=== PATIENT | female | born 1990 | race Caucasian/White ===

== ENCOUNTER 2023-02-04 01:39 | Day surgery (SDC) | payer OTHER, SELFPAY ==
[2023-02-04] VITALS (21 sets, daily range): BP systolic 105–149; BP diastolic 62–102; PULSE 57–95; RESP 16–90; TEMP 36–37.2; O2SAT 93–100; BMI 29.3
--- NOTE | 2023-02-04 01:56 | CRLHL7_ITS ---
For Patients: As a result of the Century Cures Act, medical imaging exams and procedure reports are released immediately into your electronic medical record. You may view this report before your referring provider. If you have questions, please contact your health care provider. INDICATION: Right upper quadrant abdominal pain. TECHNIQUE: Ultrasound abdomen limited. Sonographic images of the right upper quadrant were obtained using umana-scale and color Doppler images. COMPARISON: None. FINDINGS: Liver: Normal in size and echotexture. No suspicious masses. Mild intrahepatic biliary ductal dilatation. Gallbladder: Distended gallbladder. 6 mm stone in the cystic duct, with additional stones and layering sludge in the gallbladder lumen. Mild gallbladder wall thickening measuring 3 mm. Positive sonographic Turner`s sign. Common bile duct: 5 mm. Pancreas: Visualized portions are unremarkable. Right kidney: Normal in size. Normal echotexture and cortex. No suspicious masses, stones, or hydronephrosis. Vasculature: Proximal abdominal aorta and IVC are unremarkable. IMPRESSION: Hydropic gallbladder with cholelithiasis and mild gallbladder wall thickening, suggestive of acute cholecystitis. Dictated by Harpreet Chaudhary MD @ 02/04/2023 3:04:52 AM (Electronically Signed)
[2023-02-04 01:59] LABS: Lactate* 2.1 mmol/L (0.5-1.9)
--- NOTE | 2023-02-04 01:59 | ED.GENADULT ---
HPI - General Adult General Chief complaint: Abdominal Pain Stated complaint: Severe abdominal pain Time Seen by Provider: 02/04/23 01:59 Source: patient Mode of arrival: ambulatory Limitations: no limitations History of Present Illness HPI narrative: 32-year-old generally healthy female presenting today with abdominal pain going on for the last 7 hours. Pain is located in the epigastric and right upper quadrant radiates into her chest. She has vomited a few times today as well. She denies any fevers or chills. She states that this has happened to her on multiple occasions, it only lasts for few hours and she feels better after a lot of burping. This time has not gotten any better infectious just been getting worse over the last several hours. Last bowel movement was today and was normal. She denies any urinary symptoms. She has not taken any medications for this. She takes no regular medications and denies any intra-abdominal surgeries in the past. Related Data Home Medications Medication Instructions Recorded Confirmed No Known Home Medications 02/04/23 02/04/23 Allergies Allergy/AdvReac Type Severity Reaction Status Date / Time No Known Drug Allergies Allergy Verified 02/04/23 01:44 Review of Systems Status of ROS: Reports: 10 or more systems reviewed and unremarkable except as noted in History and below [facility] Social History What is your current living situation?: I presently have a place to live Problems where you live: no known problems Problems where you live details: NA In the past 12 months, utilities in danger of being shut off: no In the past 12 mos, have been you worried that your food would run out before you had money to buy more?: never true In the past 12 mos, the food you bought just didn't last and you didn't have money to buy more?: never true Highest level of school completed/degree received: some college, no degree Smoking Status: Never smoker Do you use any of these nicotine containing products: None Second hand tobacco smoke exposure: No How often do you have a drink containing alcohol: monthly or less Alcohol type: wine How many standard drinks containing alcohol do you have on a typical day: 1 or 2 How often do you have six or more drinks on one occasion: Never AUDIT-C Alcohol total score: 1 Non-prescribed substance use: denies use Caffeine: Yes (1 cup/day) How often does anyone, including family, friends and others, physically hurt you: never How often does anyone, including family, friends and others, insult or talk down to you: never How often does anyone, including family, friends and others, threaten you with harm: never How often does anyone, including family, friends and others, scream or curse at you: never service: No Exam Narrative: Exam Narrative: Well-nourished well-developed patient, very anxious. Alert and oriented. Answers questions appropriately. Thoughts are goal oriented and rational. No tangential or magical thinking noted. Patient speaks in full sentences without needing to catch her breath. HEENT: Normocephalic atraumatic. Pupils are equally round reactive to light. Extraocular muscles are intact. Conjunctivae are moist without any icterus noted. Moist mucous membranes. Posterior pharynx is normal. Neck is soft without any lymphadenopathy or thyromegaly. No masses are appreciated. Cardiovascular: Heart is regular rate and rhythm S1 and S2 are present without any murmurs. Lungs: Clear to auscultation bilaterally no wheezes rhonchi or rales are appreciated. Patient takes deep breaths without any discomfort. Abdomen: Soft and nondistended with normal bowel sounds. No guarding or rebound. No masses or organomegaly appreciated. She does have epigastric discomfort and a positive Turner sign. Extremities: Bilateral lower extremities are without edema. Normal DP and PT pulses. Skin: Well perfused without any obvious rashes. Const: Vital Signs, click to edit/add: Vital Signs - 24 hr 02/04/23 01:45 02/04/23 03:00 02/04/23 03:05 Temperature 96.8 F L Pulse Rate [Pulse Oximeter] 73 Respiratory Rate 24 Blood Pressure [Ri ght Upper Arm] 147/102 H 146/92 H Pulse Oximetry 100 94 94 Oxygen Delivery Me thod Room Air Room Air 02/04/23 03:30 02/04/23 04:00 Temperature Pulse Rate [Pulse Oximeter] 95 Respiratory Rate 16 90 H Blood Pressure [Ri ght Upper Arm] 139/93 H 144/96 H Pulse Oximetry 94 98 Oxygen Delivery Me thod Room Air Course Course Hospital Course: IV is established and patient given IV fluids, Zofran and morphine. Differential diagnosis at this time includes gastritis, cholelithiasis, cholecystitis, PUD, pancreatitis. Aside from a minimally elevated lactate at 2.1 the remainder of her lab work was unremarkable. Ultrasound shows cholelithiasis and gallbladder wall changes consistent with cholecystitis. I did consult with Dr. Trent, who suggested admission and surgery in the morning. She also recommended Zosyn, which was started in the ER. Vital Signs Vital signs: Initial Vital Signs Temperature 96.8 F L 02/04/23 01:45 Temperature Source Temporal Artery Scan 02/04/23 01:45 Pulse Rate 73 02/04/23 01:45 Pulse Rhythm Regular 02/04/23 01:45 Pulse Strength 3+ Normal 02/04/23 01:45 Respiratory Rate 24 02/04/23 01:45 Blood Pressure 147/102 H 02/04/23 01:45 Blood Pressure Mean 117 H 02/04/23 01:45 Pulse Oximetry 100 02/04/23 01:45 Oxygen Delivery Method Room Air 02/04/23 01:45 Vital Signs Temperature 96.8 F L 02/04/23 01:45 Pulse Rate 73 02/04/23 01:45 Respiratory Rate 24 02/04/23 01:45 Blood Pressure 147/102 H 02/04/23 01:45 Pulse Oximetry 100 02/04/23 01:45 Oxygen Delivery Method Room Air 02/04/23 01:45 Temperature 99 F 02/04/23 05:25 Pulse Rate 62 02/04/23 05:25 Respiratory Rate 16 02/04/23 05:25 Blood Pressure 149/89 H 02/04/23 05:25 Pulse Oximetry 99 02/04/23 05:25 Oxygen Delivery Method Room Air 02/04/23 05:25 Medical Decision Making [facility] Narrative Medical decision making narrative: 32-year-old female cholecystitis and cholelithiasis. Patient will be admitted for pain management and plan to go to the OR later today. Lab Data Lab results reviewed: Yes I reviewed the patient's lab results Labs: Lab Results 02/04/23 Range/Units 01:56 WBC 10.48 (4.50-11.00) K/uL RBC 4.60 (4.00-5.20) m/uL Hgb 14.5 (12.0-16.0) gm/dL Hct 42.0 (33.0-51.0) % MCV 91 (80-100) fL MCH 32 (26-34) pg MCHC 35 (32-36) gm/dL RDW Coeff of Ml 11.9 (11.5-15.5) % Plt Count 229 (140-440) K/uL Neut % (Auto) 86.0 H (42.0-72.0) % Lymph % (Auto) 9.1 L (20-44) % Coffee % (Auto) 3.5 (0.0-11.0) % Eos % (Auto) 0.0 (0.0-7.0) % Baso % (Auto) 0.3 (0.0-3.0) % Neut # (Auto) 9.00 H (1.7-7.0) K/uL Lymph # (Auto) 1.00 (0.90-2.90) K/uL Coffee # (Auto) 0.40 (0.00-0.90) K/UL Eos # (Auto) 0.00 (0.00-0.50) K/uL Baso # (Auto) 0.03 (0.00-0.30) K/uL Abs Immat Gran (auto) 0.12 (0.00-0.30) K/uL Imm/Tot Granulo (auto) 1.1 % ESR 10 (2-20) mm/hr Sodium 138 (135-149) mmol/L Potassium 3.7 (3.6-5.1) mmol/L Chloride 104 (96-114) mmol/L Carbon Dioxide 20 (20-32) mmol/L BUN 14 (5-24) mg/dL Creatinine 0.7 (0.5-1.5) mg/dL Estimated Creat Clear 88.68 Estimated GFR 119 ml/min Glucose 121 H (60-115) mg/dL Lactate 2.1 H (0.5-1.9) mmol/L Calcium 10.2 (8.4-10.6) mg/dL Total Bilirubin 1.3 (0.1-1.5) mg/dL Direct Bilirubin 0.1 (0.0-0.5) mg/dL AST 32 (12-35) U/L ALT 31 (4-35) U/L Alkaline Phosphatase 65 (40-150) U/L C-Reactive Protein < 0.5 L (0.5-1.0) mg/dL Total Protein 8.3 (6.0-8.3) g/dL Albumin 4.9 (3.3-5.0) g/dL Lipase 65 (23-300) U/L Imaging Data US - abdomen: Attestation: I have reviewed the pertinent imaging results. Radiologist's impression: Ultrasound abdomen limited. Sonographic images of the right upper quadrant were obtained using umana-scale and color Doppler images. COMPARISON: None. FINDINGS: Liver: Normal in size and echotexture. No suspicious masses. Mild intrahepatic biliary ductal dilatation. Gallbladder: Distended gallbladder. 6 mm stone in the cystic duct, with additional stones and layering sludge in the gallbladder lumen. Mild gallbladder wall thickening measuring 3 mm. Positive sonographic Turner`s sign. Common bile duct: 5 mm. Pancreas: Visualized portions are unremarkable. Right kidney: Normal in size. Normal echotexture and cortex. No suspicious masses, stones, or hydronephrosis. Vasculature: Proximal abdominal aorta and IVC are unremarkable. IMPRESSION: Hydropic gallbladder with cholelithiasis and mild gallbladder wall thickening, suggestive of acute cholecystitis. Discharge Plan Discharge Clinical Impression: Cholecystitis, Cholelithiasis Patient Disposition: Admitted As Inpatient Condition: Stable
[2023-02-04 02:02] LABS: Basophils Absolute Auto 0.03 K/uL (0.00-0.30); Basophils Percent Auto 0.3 % (0.0-3.0); Hemoglobin* 14.5 gm/dL (12.0-16.0); Immature Granulocytes Abs Auto 0.12 K/uL (0.00-0.30); Immature Granulocytes Pct Auto 1.1 %; Lymphocytes Percent Auto 9.1 % (20-44); Mean Corpuscular HGB Conc 35 gm/dL (32-36); Mean Corpuscular Hemoglobin 32 pg (26-34); Mean Corpuscular Volume 91 fL (80-100); Monocytes Percent Auto 3.5 % (0.0-11.0); Platelet Count* 229 K/uL (140-440); RDW Coefficient of Variation % 11.9 % (11.5-15.5); White Blood Count* 10.48 K/uL (4.50-11.00)
[2023-02-04 02:03] LABS: Slide Review Reflex No
[2023-02-04] MEDS: 0.9 % SODIUM CHLORIDE 1000 ml 1,000 ML IV (02:06)
[2023-02-04] MEDS: MORPHINE 2 MG/ML inj 4 MG IVP (02:07)
[2023-02-04] MEDS: ONDANSETRON 2 MG/ML inj 4 MG IVP (02:07)
[2023-02-04 02:16] LABS: Albumin* 4.9 g/dL (3.3-5.0); Chloride* 104 mmol/L (96-114); Sodium* 138 mmol/L (135-149)
[2023-02-04 02:17] LABS: Potassium* 3.7 mmol/L (3.6-5.1)
[2023-02-04 02:18] LABS: Creatinine* 0.7 mg/dL (0.5-1.5); Est. Creatinine Clearance* 88.68; Estimated Glomerular Filt Rate 119 ml/min
[2023-02-04 02:19] LABS: Alkaline Phosphatase* 65 U/L (40-150); Aspartate Amino Transferase* 32 U/L (12-35); Bilirubin Direct* 0.1 mg/dL (0.0-0.5); Bilirubin Total* 1.3 mg/dL (0.1-1.5); Blood Urea Nitrogen* 14 mg/dL (5-24); Carbon Dioxide* 20 mmol/L (20-32); Total Protein* 8.3 g/dL (6.0-8.3)
[2023-02-04 02:20] LABS: Alanine Aminotransferase* 31 U/L (4-35); Calcium* 10.2 mg/dL (8.4-10.6); Glucose* 121 mg/dL (60-115); Lipase* 65 U/L (23-300)
[2023-02-04 02:23] LABS: C Reactive Protein* < 0.5 mg/dL (0.5-1.0)
[2023-02-04] MEDS: HYDROCODONE-ACETAMIN 5-325 MG 1 TAB 2 TAB PO (02:25)
[2023-02-04 02:43] LABS: Erythrocyte SedimentationRate* 10 mm/hr (2-20)
[2023-02-04] MEDS: HYDROmorphone 0.5 mg/0.5 ml inj 0.2 MG IVP (04:10)
[2023-02-04] MEDS: PIPERACILLIN/TAZOBACTAM 3.375 GM in 0.9 % SODIUM CHLORIDE Mini-bag 100 ML IVPB ×2 (04:10→09:44)
--- NOTE | 2023-02-04 04:26 | ED.NURSE ---
Nurse to Nurse report given to Teirra ELDRIDGE. Patient going to room 261
--- NOTE | 2023-02-04 04:40 | PM.IMCN1 ---
Date of Consult Consult date: 02/04/23 Primary Care Provider: Not a Local Provider Consult Narrative Narrative: Hardy Hernandez Hospitalist ADMISSION SUPPORT NOTE eHospitalist was contacted by Dr. Peng with request of admission support. Chief complaint: RUQ pain HPI: The patient reports that over the past 4 to 5 weeks she has had these episodes of abdominal discomfort that felt like a gas bubble occurring at nighttime associated with burping. These but wake her up out of her sleep Home Medications: None Pertinent Medical History: Egg retrieval Pertinent Social History: Denies history of smoking or drugs of abuse, occasional alcohol use [facility] Social History What is your current living situation?: I presently have a place to live Problems where you live: no known problems Problems where you live details: NA In the past 12 months, utilities in danger of being shut off: no In the past 12 mos, have been you worried that your food would run out before you had money to buy more?: never true In the past 12 mos, the food you bought just didn't last and you didn't have money to buy more?: never true Highest level of school completed/degree received: some college, no degree Smoking Status: Never smoker Do you use any of these nicotine containing products: None Second hand tobacco smoke exposure: No How often do you have a drink containing alcohol: monthly or less Alcohol type: wine How many standard drinks containing alcohol do you have on a typical day: 1 or 2 How often do you have six or more drinks on one occasion: Never AUDIT-C Alcohol total score: 1 Non-prescribed substance use: denies use Caffeine: Yes (1 cup/day) How often does anyone, including family, friends and others, physically hurt you: never How often does anyone, including family, friends and others, insult or talk down to you: never How often does anyone, including family, friends and others, threaten you with harm: never How often does anyone, including family, friends and others, scream or curse at you: never service: No Meds Home Medications and Allergies Home Medications Medication Instructions Recorded Confirmed Type No Known Home Medications 02/04/23 02/04/23 History Allergies Allergy/AdvReac Type Severity Reaction Status Date / Time No Known Drug Allergies Allergy Verified 02/04/23 01:44 Exam Narrative: Exam Narrative: Exam (performed via interactive video with assistance of bedside nurse): General: Alert, cooperative, no acute distress HEENT: Oral mucosa pink and moist without erythema Lungs: Clear to auscultation bilaterally without crackle or wheeze CV: Regular rate and rhythm without loud murmur rub or gallop Abd: Does exhibit signs of pain with palpation in the right upper quadrant done by bedside nurse Ext: No pitting edema noted Skin: No rashes, bruises or lesions appreciated on gross visualization of exposed skin Neuro: Alert, oriented x 3. CN III -VII, XI, XII grossly intact, moves all extremities without any significant focal deficit appreciated by nurse Const: Vital Signs, click to edit/add: Vital Signs - 24 hr 02/04/23 01:45 02/04/23 03:00 02/04/23 03:05 Temperature 96.8 F L Pulse Rate [Pulse Oximeter] 73 Respiratory Rate 24 Blood Pressure [Ri ght Upper Arm] 147/102 H 146/92 H Pulse Oximetry 100 94 94 Oxygen Delivery Me thod Room Air Room Air 02/04/23 03:30 02/04/23 04:00 Temperature Pulse Rate [Pulse Oximeter] 95 Respiratory Rate 16 90 H Blood Pressure [Ri ght Upper Arm] 139/93 H 144/96 H Pulse Oximetry 94 98 Oxygen Delivery Me thod Room Air Labs Labs: Short CBC 02/04/23 Range/Units 01:56 WBC 10.48 (4.50-11.00) K/uL Hgb 14.5 (12.0-16.0) gm/dL Hct 42.0 (33.0-51.0) % Plt Count 229 (140-440) K/uL BMP 02/04/23 01:56 Sodium 138 Potassium 3.7 Chloride 104 Carbon Dioxide 20 BUN 14 Creatinine 0.7 Glucose 121 H Calcium 10.2 Liver Function 02/04/23 Range/Units 01:56 Total Bilirubin 1.3 (0.1-1.5) mg/dL Direct Bilirubin 0.1 (0.0-0.5) mg/dL AST 32 (12-35) U/L ALT 31 (4-35) U/L Alkaline Phosphatase 65 (40-150) U/L Albumin 4.9 (3.3-5.0) g/dL Assessment and Plan Assessment and plan (1) Cholelithiasis: Status: Acute (2) Cholecystitis: Status: Acute Plan Recent lab/abdominal ultrasound: Reviewed see EMR for detailed Assessment and Plan: 1. Acute cholecystitis-on Zosyn. Plan surgical intervention today. Pain control with Dilaudid 2. DVT prophylaxis-SCDs 3. CODE STATUS full code discussed with patient Chart review was performed as well as evaluation of the patient via video. Thank you for involving ehospitalist. Please contact [phone] if further assistance is needed.
[2023-02-04] MEDS: SODIUM CHLORIDE 0.9 % (FLUSH) 10 ML SYRINGE 5 ML IVF ×2 (05:10→08:53)
[2023-02-04] MEDS: HYDROmorphone 0.5 mg/0.5 ml inj 0.4 MG IVP (05:10)
[2023-02-04] MEDS: 0.9 % SODIUM CHLORIDE 1000 ml 1,000 ML 100 ML IV (05:11)
--- NOTE | 2023-02-04 06:31 | PC.NURSE ---
Admission/shift note: pt accompanied by spouse, c/o right upper abdominal pain, 01/07. RN treated per eMAR with temporary relief. No c/o nausea, NPO.
[2023-02-04] MEDS: HYDROmorphone 0.5 mg/0.5 ml inj IVP ×2 (06:39→08:52)
--- NOTE | 2023-02-04 08:10 | P.GSHP_ITS ---
History of Present Illness History of Present Illness Date Seen: 02/04/23 Chief complaint: Severe abdominal pain Narrative: Vannessa Esparza is a 32 year old female abdominal pain. She states that she has had symptoms on and off for several weeks. She states that it would wake her up in the middle the night and last for a few hours then go away on its own. It would only come on every few days. She thought it was related to indigestion or gas pain. She had an episode earlier this week which was more severe. At 6:00 p.m. yesterday she developed pain which was more severe. She vomited around 9:00 p.m. and then eventually came in to be seen. Workup revealed normal LFTs, however she had a stone impacted in the gallbladder neck with a markedly distended gallbladder seen on ultrasound. Nothing seems to make the pain better or worse. It is hard for her to Breeze secondary to the pain, however she otherwise has no shortness of breath or chest pain. She has not had any fevers however she felt sweaty overnight. She states that her stools have not been diarrhea but they have been looser than usual the last few weeks. No urinary symptoms. She has recently completed hormonal treatment for infertility and egg harvesting. She is not currently [facility] Surgical History (Updated 02/04/23 @ 09:06 by Janet Trent MD) [place] teeth extracted ?K08.409 - Partial loss of teeth, unspecified cause, unspecified class (ICD- 10) Social History What is your current living situation?: I presently have a place to live Problems where you live: no known problems Problems where you live details: NA In the past 12 months, utilities in danger of being shut off: no In the past 12 mos, have been you worried that your food would run out before you had money to buy more?: never true In the past 12 mos, the food you bought just didn't last and you didn't have money to buy more?: never true Highest level of school completed/degree received: some college, no degree Smoking Status: Never smoker Do you use any of these nicotine containing products: None Second hand tobacco smoke exposure: No How often do you have a drink containing alcohol: monthly or less Alcohol type: wine How many standard drinks containing alcohol do you have on a typical day: 1 or 2 How often do you have six or more drinks on one occasion: Never AUDIT-C Alcohol total score: 1 Non-prescribed substance use: denies use Caffeine: Yes (1 cup/day) How often does anyone, including family, friends and others, physically hurt you : never How often does anyone, including family, friends and others, insult or talk down to you: never How often does anyone, including family, friends and others, threaten you with harm: never How often does anyone, including family, friends and others, scream or curse at you: never service: No Meds Home Medications and Allergies Home Medications Medication Instructions Recorded Confirmed Type No Known Home Medications 02/04/23 02/04/23 History Allergies Allergy/AdvReac Type Severity Reaction Status Date / Time No Known Drug Allergies Allergy Verified 02/04/23 01:44 Exam Narrative: Exam Narrative: General appearance: Alert, cooperative, and in no distress Eyes: PERRLA, eye lids clear, and sclera white HENT Head: Normocephalic Ears: External ears normal Pulmonary: Clear to auscultation bilaterally Cardiovascular Heart: Regular rate and rhythm Extremities: warm and well perfused Gastrointestinal Abdominal: No scars. No hernias. Abdomen is tender in epigastric region and right upper quadrant with guarding. Musculoskeletal: Extremities: Upper: Both upper extremities have normal joint range of motion and intact strength. Lower: Both lower extremities have normal joint range of motion and intact strength. Skin: Normal skin color, texture, and turgor. Neurologic: No focal deficits Psychiatric: Alert, oriented, cooperative, normal affect. Const: Vital Signs, click to edit/add: Vital Signs - 24 hr 02/04/23 01:45 02/04/23 03:00 02/04/23 03:05 Temperature 96.8 F L Pulse Rate [Pulse Oximeter] 73 Respiratory Rate 24 Blood Pressure [Le ft Radial Artery] Blood Pressure [Ri ght Upper Arm] 147/102 H 146/92 H Pulse Oximetry 100 94 94 Oxygen Delivery Me thod Room Air Room Air 02/04/23 03:30 02/04/23 04:00 02/04/23 05:25 Temperature 99 F Pulse Rate [Pulse Oximeter] 95 62 Respiratory Rate 16 90 H 16 Blood Pressure [Le ft Radial Artery] 149/89 H Blood Pressure [Ri ght Upper Arm] 139/93 H 144/96 H Pulse Oximetry 94 98 99 Oxygen Delivery Me thod Room Air Room Air Results Results Labs: White blood cell count was 10 with a slight left shift Electrolytes were normal. CRP less than 0.5. LFTs and lipase normal. Abdominal ultrasound report/results: report reviewed and image reviewed Additional studies: [place] [address] Diagnostic Imaging Report Patient: Vannessa Esparza Attending Dr: Ordering Physician: Jessica Peng M.D. Date of Service: 02/04/23 Procedure(s): US abdomen limited Accession Number(s): [id number] cc: Jessica Peng M.D.; Provider,Not a Local~ For Patients: As a result of the Cures Act, medical imaging exams and procedure reports are released immediately into your electronic medical record. You may view this report before your referring provider. If you have questions, please contact your health care provider. INDICATION: Right upper quadrant abdominal pain. TECHNIQUE: Ultrasound abdomen limited. Sonographic images of the right upper quadrant were obtained using umana-scale and color Doppler images. COMPARISON: None. FINDINGS: Liver: Normal in size and echotexture. No suspicious masses. Mild intrahepatic biliary ductal dilatation. Gallbladder: Distended gallbladder. 6 mm stone in the cystic duct, with additional stones and layering sludge in the gallbladder lumen. Mild gallbladder wall thickening measuring 3 mm. Positive sonographic Turner`s sign. Common bile duct: 5 mm. Pancreas: Visualized portions are unremarkable. Right kidney: Normal in size. Normal echotexture and cortex. No suspicious masses, stones, or hydronephrosis. Vasculature: Proximal abdominal aorta and IVC are unremarkable. IMPRESSION: Hydropic gallbladder with cholelithiasis and mild gallbladder wall thickening, suggestive of acute cholecystitis. Dictated by Harpreet Chaudhary MD @ 02/04/2023 3:04:52 AM Assessment and Plan Assessment and plan (1) Cholelithiasis: Status: Acute (2) Cholecystitis: Status: Acute Plan The patient is a 32-year-old female with likely acute cholecystitis with impaction of the stone at the gallbladder neck. I explained that the treatment for this is laparoscopic cholecystectomy. We discussed the procedure as well as risks and benefits of surgery which include bleeding, infection, bile leak, retained stones, conversion to open or injury to other structures, specifically the common bile duct. We also discussed recovery. At this point, I do not think intraoperative cholangiogram is necessary given normal LFTs and lipase. She is agreeable to proceed and signed informed consent. We will plan on surgery this morning.
[2023-02-04 09:45] LABS: HCG Qualitative Serum* Negative (Negative)
[2023-02-04] MEDS: BUPIVACAINE 0.25% 30 ML INJECTION (11:22)
--- NOTE | 2023-02-04 11:37 | PM.GSPRC ---
Operative Note Pre-op diagnosis: Acute cholecystitis Post-op diagnosis: Same Type of Procedure: Laparoscopic cholecystectomy Indications: The patient is a 32-year-old female who presented to the emergency room overnight with severe right upper quadrant epigastric pain. Workup revealed gallbladder wall thickening was a stone impacted in the cystic duct/gallbladder neck. I recommended cholecystectomy and after discussion of risks and benefits she agreed to proceed. Procedure Description: After discussing the risks and benefits of the procedure, the patient signed informed consent.? The operative site was marked and the patient was brought to the operating room and placed on the operating table in supine position.? Care was taken to pad the patient's pressure points.?? The patient was then intubated by anesthesia.?? The operative site was then prepped and draped in the usual sterile fashion.? A time-out was then performed. Entrance to the abdomen was gained via a 5 mm Visiport in the left upper quadrant. The abdomen was insufflated and briefly surveyed for signs of injury. There was none. A 10 mm umbilical port was placed as well as 2 working ports along the right costal margin, all under direct vision. The patient was then placed in reverse Trendelenburg position with the right side up. The gallbladder was noted to be edematous and distended. A needle was advanced into the abdomen and clear green bile was aspirated, decompressing the gallbladder. Once this was done, the fundus was grasped and retracted cephalad. A small amount of dissection was needed to free omental adhesions from the gallbladder. The infundibulum was grasped. A combination of hook cautery and blunt dissection was used to carefully dissect out the cystic duct and artery until they could clearly be seen entering the gallbladder without any intervening structures. The gallbladder was dissected off the cystic plate to achieve the critical view. Once this was achieved the cystic artery was clipped with 2 clips proximally and 1 clip distally and transected with the scissors. The cystic duct was dilated and there was an impacted stone. I milked this back into the gallbladder with my [place] dissected. I then transected the gallbladder at the cystic duct/gallbladder neck junction. The distal end was then doubly ligated with an 0 PDS and an 0 Vicryl endoloop suture. The gallbladder was then taken off liver bed using cautery. This was removed from the abdomen using an Endo-Catch bag. A few small stones which had spilled when the gallbladder neck was transected were removed from the abdomen. A small amount of bile which had spilled was suctioned from the abdomen and the area was irrigated again to ensure no small stones or stone fragments. Hemostasis appeared excellent. The ports were then removed and the abdomen desufflated. The umbilical port fascia was closed with 0 Vicryl. The skin was closed with absorbable subcuticular suture. Sterile dressings were then applied. Instrument sponge and needle counts were correct at the end of the case. The patient was then woken and transferred to the PACU in stable condition. ? The patient tolerated the procedure well. Findings: Acute cholecystitis secondary to gallstones with gallbladder wall edema. Anesthesia: GETA Surgeon: Janet Trent MD Estimated blood loss (mL): 10 Specimen: Gallbladder Condition: stable Disposition: PACU
--- NOTE | 2023-02-04 11:42 | W.ANESCHARGE ---
Anesthesia Charges Start Date/Time Anesthesia Start Date: 02/04/23 Anesthesia Start Time: 10:04 Stop Date/Time Anesthesia Stop Date: 02/04/23 Anesthesia Stop Time: 11:43
--- NOTE | 2023-02-04 12:17 | SUR.PHASEI ---
patient met discharge criteria per anesthesia
[2023-02-04] MEDS: LACTATED RINGERS 1000 ML 1,000 ML 100 ML IV (12:18)
== END 2023-02-04 13:37 | disposition home or self-care (01) ==
LOC: ED 03:43 → MEDSURG 04:38 → SS 08:18 → MEDSURG 08:18
PROVIDERS: Surgery; Emergency Provider Family Medicine; Visit Provider Family Medicine
PROC: 0FT44ZZ Resection of Gallbladder, Percutaneous Endoscopic Approach (ICD-10-PCS; CPT 47562; principal; 2023-02-04 09:30)
DX: K80.01 Calculus of gallbladder with acute cholecystitis with obstruction (principal)
CPT/HCPCS: 47562; 00790; 36415; 76705; 80048; 80076; 81025; 83605; 83690; 84703; 85025; 85651; 86140; 88304; 94761; 99283; 99285; A9270; J0330; J0665; J1100; J1170; J2250; J2270; J2405; J2543; J2704; J2710; J3010; J7030; J7120